=== PATIENT | female | born 1990 | race Caucasian/White ===

== ENCOUNTER 2022-03-12 23:41 | Day surgery (SDC) | payer BC ==
[2022-03-13] MEDS ORDERED: hydrALAZINE 20 MG/ML VIAL SLOW IVP PRN (00:41)
[2022-03-13 01:14] VITALS: BMI 28.9
== END 2022-03-13 01:10 | disposition home or self-care (01) ==
LOC: CSHLD/OP 23:41
PROVIDERS: ATTEND Student in an Organized Health Care Education/Training Program
DX: O47.1 False labor at or after 37 completed weeks of gestation (principal); O09.293 Supervision of pregnancy with other poor reproductive or obstetric history, third trimester; Z3A.38 38 weeks gestation of pregnancy
CPT/HCPCS: 99282

== ENCOUNTER 2022-03-14 16:41 | Inpatient (IN) | payer BC ==
[2022-03-14 17:18] VITALS: BMI 28.9
[2022-03-14] MEDS ORDERED: Butorphanol Tartrate 1 MG/ML VIAL SLOW IVP PRN (18:05)
[2022-03-14] MEDS ORDERED: HYDROcodone/Acetaminophen 5/325 mg Tablet PO PRN ×2 (18:05)
[2022-03-14] MEDS ORDERED: Methylergonovine 0.2 MG/ML VIAL IM PRN (18:05)
[2022-03-14] MEDS ORDERED: Carboprost 250 MCG/ML AMP IM PRN (18:05)
[2022-03-14] MEDS ORDERED: Promethazine HCl 25 MG/ML VIAL IM PRN ×2 (18:05→21:59)
[2022-03-14] MEDS ORDERED: Dextrose 5%-Lactated Ringers 1,000 ML IV PRN (18:05)
[2022-03-14] MEDS ORDERED: hydrALAZINE 20 MG/ML VIAL SLOW IVP PRN (18:05)
[2022-03-14] MEDS ORDERED: Misoprostol 200 MCG TAB PR PRN (18:05)
[2022-03-14] MEDS ORDERED: Lidocaine 1% (PF) 30 ML VIAL SC PRN (18:05)
[2022-03-14] MEDS ORDERED: Ondansetron PF 4 MG/2 ML Vial IVP PRN ×2 (18:05→21:59)
[2022-03-14] MEDS ORDERED: Fentanyl 100 MCG/2 ML VIAL SLOW IVP PRN (18:05)
[2022-03-14] MEDS ORDERED: Ibuprofen 800 MG TAB PO PRN (18:05)
[2022-03-14] MEDS ORDERED: Lactated Ringer's 1,000 ML IV SCH (18:15)
[2022-03-14] MEDS ORDERED: NS w/ Oxytocin 30 units 500 ML IV SCH ×2 (18:15)
[2022-03-14 18:31] LABS: Hemoglobin 12.9 g/dL (12.0-15.5); Mean Corpuscular HGB CONC 33.9 g/dL (32.0-36.0); Mean Corpuscular Hemoglobin 28.7 pg (27.0-33.0); Mean Corpuscular Volume 84.7 fl (81.6-98.3); Platelet Count 225 10x3/uL (150-450); RBC Distribution Width 13.6 % (11.5-14.5); White Blood Cell (WBC) Count 8.5 10x3/uL (3.5-10.5)
[2022-03-14 18:48] LABS: HBSAg Index 0.13 S/CO (0-0.99); Hep B Surf Ag Non-Reactive S/CO (NonReactive); Syphilis Antibody Nonreactive (Nonreactive); Syphilis Antibody Index 0.04 S/CO (<1.00 Non-Reactive)
[2022-03-14 19:09] LABS: SARS-CoV-2 NAA Rapid Test Not Detected (NotDetected)
[2022-03-14] MEDS ORDERED: Fentanyl 2 mcg/Bup 0.1% Cadd 100 ML ONE (21:51)
[2022-03-14] MEDS ORDERED: ePHEDrine Sulfate 50 MG/10 ML VIAL SLOW IVP PRN (21:59)
[2022-03-14] MEDS ORDERED: Naloxone HCl 0.4 mg/ml Vial IVP PRN ×2 (21:59)
[2022-03-14] MEDS ORDERED: Acetaminophen 325 MG TAB PO PRN (21:59)
[2022-03-14] MEDS ORDERED: Moisturizing Cream (Eucerin) 113 GM JAR TOP PRN (21:59)
[2022-03-14] MEDS ORDERED: Lactated Ringer's 500 ML IV PRN (21:59)
[2022-03-14] MEDS ORDERED: diphenhydrAMINE 50 MG/ML VIAL IVP PRN (21:59)
[2022-03-14] MEDS ORDERED: Communication Order-Pharmacy FS SCH (22:00)
[2022-03-14] MEDS ORDERED: Fentanyl 2 mcg/Bupivacaine 0.1% Cassette 100 ML EPIDURAL SCH (22:00)
[2022-03-14] MEDS ORDERED: Famotidine/PF 20 mg/2ml Vial ONE (22:29)
[2022-03-14] MEDS ORDERED: Famotidine/PF 20 mg/2ml Vial SLOW IVP SCH (23:00)
[2022-03-15] MEDS ORDERED: Preparation H Ointment 28 GM TUBE PR PRN (07:25)
[2022-03-15] MEDS ORDERED: Milk Of Magnesia 30 ML UDCUP PO PRN (07:25)
[2022-03-15] MEDS ORDERED: Benzocaine-Menthol 82.5 ML CAN TOP PRN (07:25)
[2022-03-15] MEDS ORDERED: Ondansetron PF 4 MG/2 ML Vial IVP PRN (07:25)
[2022-03-15] MEDS ORDERED: Methylergonovine 0.2 MG/ML VIAL IM PRN (07:25)
[2022-03-15] MEDS ORDERED: hydrALAZINE 20 MG/ML VIAL SLOW IVP PRN (07:25)
[2022-03-15] MEDS ORDERED: Boostrix 0.5 ML (Tdap) VIAL IM ONE (07:25)
[2022-03-15] MEDS ORDERED: HYDROcodone/Acetaminophen 5/325 mg Tablet PO PRN ×2 (07:25)
[2022-03-15] MEDS ORDERED: Lanolin Ointment 7 GM TUBE TOP PRN (07:25)
[2022-03-15] MEDS ORDERED: NS w/ Oxytocin 30 units 500 ML IV SCH (07:25)
[2022-03-15] MEDS ORDERED: Misoprostol 200 MCG TAB VAG PRN (07:25)
[2022-03-15] MEDS ORDERED: Bisacodyl 10 MG SUPP PR PRN (07:25)
[2022-03-15] MEDS ORDERED: Lidocaine 2% 10 ML INJ ONE (08:00)
[2022-03-15] MEDS ORDERED: Bupivacaine/Epinephrine 0.25% 30 ML VIAL ONE (08:00)
[2022-03-15] MEDS: Ferrous Sulfate 325 MG TAB PO SCH ×2 (08:54→18:42)
[2022-03-15] MEDS: Prenatal Vitamin 1 TAB PO SCH (08:55)
[2022-03-15] MEDS: Docusate 100 MG CAP PO SCH ×2 (08:55→21:43)
[2022-03-15] MEDS: Ibuprofen 800 MG TAB PO SCH ×2 (13:50→21:43)
[2022-03-16] MEDS: Ibuprofen 800 MG TAB PO SCH ×3 (05:57→21:28)
[2022-03-16] MEDS: Ferrous Sulfate 325 MG TAB PO SCH ×2 (07:29→16:05)
[2022-03-16] MEDS: Prenatal Vitamin 1 TAB PO SCH (08:31)
[2022-03-16] MEDS: Docusate 100 MG CAP PO SCH ×2 (08:32→21:27)
[2022-03-17] MEDS: Ibuprofen 800 MG TAB PO SCH ×2 (05:15→13:50)
[2022-03-17 07:51] VITALS: BP 115/75; TEMP 98.3
[2022-03-17] MEDS: Prenatal Vitamin 1 TAB PO SCH (08:38)
[2022-03-17] MEDS: Docusate 100 MG CAP PO SCH (08:38)
[2022-03-17] MEDS: Ferrous Sulfate 325 MG TAB PO SCH (08:39)
== END 2022-03-17 13:59 | disposition home or self-care (01) | DRG 807 ==
LOC: CSHLD/OP 16:41 → CSHLD 17:42 → CSHPED 03-15 08:00
PROVIDERS: ADMIT Obstetrics & Gynecology; ATTEND Obstetrics & Gynecology
PROC: 10E0XZZ Delivery of Products of Conception, External Approach (ICD-10-PCS; principal; 2022-03-15)
PROC: 0HQ9XZZ Repair Perineum Skin, External Approach (ICD-10-PCS; 2022-03-15)
DX: O42.02 Full-term premature rupture of membranes, onset of labor within 24 hours of rupture (principal); Z37.0 Single live birth; O70.0 First degree perineal laceration during delivery; Z20.822 Contact with and (suspected) exposure to COVID-19; Z3A.39 39 weeks gestation of pregnancy; Z79.899 Other long term (current) drug therapy; Z90.89 Acquired absence of other organs; Z88.8 Allergy status to other drugs, medicaments and biological substances
CPT/HCPCS: 51702; 85027; 86780; 86850; 86900; 86901; 87340; 99282; J2590; S0028; U0002

== ENCOUNTER 2023-05-26 18:00 | Inpatient (IN) | payer BC ==
[2023-05-26] MEDS ORDERED: Zolpidem Tartrate 5 MG TAB PO PRN (20:10)
[2023-05-26] MEDS ORDERED: Promethazine HCl 25 MG/ML VIAL IM PRN ×2 (20:10→23:10)
[2023-05-26] MEDS ORDERED: Ondansetron PF 4 MG/2 ML Vial IVP PRN (20:10)
[2023-05-26] MEDS ORDERED: Tranexamic Acid 1,000 MG/10 ML VIAL IVP PRN (20:10)
[2023-05-26] MEDS ORDERED: hydrALAZINE 20 MG/ML VIAL SLOW IVP PRN (20:10)
[2023-05-26] MEDS ORDERED: fentaNYL 50 mcg/mL 1 mL Vial SLOW IVP PRN (20:10)
[2023-05-26 20:12] VITALS: BMI 24.0
[2023-05-26] MEDS ORDERED: Misoprostol 100 MCG TAB VAG SCH ×2 (20:20→23:59)
[2023-05-26 21:55] LABS: Hematocrit 39.8 % (34.9-44.5); Mean Corpuscular HGB CONC 35.2 g/dL (32.0-36.0); Mean Corpuscular Hemoglobin 30.1 pg (27.0-33.0); Mean Corpuscular Volume 85.6 fl (81.6-98.3); Platelet Count 274 10x3/uL (150-450); RBC Distribution Width 12.4 % (11.5-14.5); Red Blood Cell (RBC) Count 4.65 10x6/uL (3.90-5.03); White Blood Cell (WBC) Count 6.8 10x3/uL (3.5-10.5)
[2023-05-26] MEDS ORDERED: Ibuprofen 800 MG TAB PO SCH (22:00)
[2023-05-26] MEDS ORDERED: diphenhydrAMINE 50 MG/ML VIAL IM PRN (23:10)
[2023-05-26] MEDS ORDERED: diphenhydrAMINE 50 MG/ML VIAL IVP PRN (23:10)
[2023-05-26] MEDS ORDERED: Naloxone HCl 0.4 mg/ml Vial IV PRN (23:10)
[2023-05-26] MEDS ORDERED: FENTANYL 500 MCG/10 ML VIAL 2,000 MCG in Sodium Chloride 0.9% 60 ML IV PRN (23:10)
[2023-05-26] MEDS ORDERED: diphenhydrAMINE 25 MG CAP PO PRN (23:10)
[2023-05-26] MEDS ORDERED: Communication Order-Pharmacy FS SCH (23:15)
[2023-05-26] MEDS ORDERED: FENTANYL 500 MCG/10 ML VIAL 1,000 MCG in Sodium Chloride 0.9% 30 ML IV PRN (23:30)
[2023-05-27] MEDS: Misoprostol 200 MCG TAB VAG SCH ×2 (01:52→05:58)
[2023-05-27] MEDS: Ondansetron PF 4 MG/2 ML Vial IVP PRN ×2 (02:05→07:48)
[2023-05-27] MEDS ORDERED: Misoprostol 200 MCG TAB PO SCH (06:30)
== END 2023-05-27 16:50 | disposition home or self-care (01) | DRG 779 ==
LOC: EEVIPCON 19:26 → CSHLD 19:26
PROVIDERS: ADMIT Obstetrics & Gynecology; ATTEND Obstetrics & Gynecology
PROC: 10D07Z8 Extraction of Products of Conception, Other, Via Natural or Artificial Opening (ICD-10-PCS; principal; 2023-05-27)
DX: O02.1 Missed abortion (principal); Z88.8 Allergy status to other drugs, medicaments and biological substances; Z79.899 Other long term (current) drug therapy
CPT/HCPCS: 36415; 76802; 85027; 86850; 86900; 86901; 88300; J2405; J3010; J3490